=== PATIENT | male | born 1950 | race Caucasian/White ===

== ENCOUNTER 2020-10-18 11:48 | Inpatient (IN) | payer SELFPAY ==
[~2020-10-18] VITALS: Ht 170.2 cm; Wt 68.0 kg
[~2020-10-18 11:48] MED LIST: ETOMIDATE 2MG/ML 10ML VIAL IV ONE; SODIUM CHLORIDE 0.9% 10ML VIAL ONE; VECURONIUM BROMIDE 10 MG/VIAL IV ONE
[2020-10-18] MEDS ORDERED: ONDANSETRON HCL 4MG/2ML INJ IV STA (12:20)
[2020-10-18] MEDS ORDERED: SODIUM CHLORIDE 0.9% 1,000 ML IV ONE (12:30)
[2020-10-18 12:59] LABS: BG BASE EXCESS 1.1 mmol/L (-2.0-2.0); BG CARBOXYHEMOGLOBIN 5.8 % (0.5-1.5); BG DEOXYHEMOGLOBIN 0.6 % (0.0-5.0); BG HCO3 ACT 33.1 mmol/L (22.0-26.0); BG METHEMOGLOBIN 0.2 % (0.0-1.5); BG OXYGEN SATURATION 99.4 % (92.0-98.5); BG OXYHEMOGLOBIN 93.4 % (94.0-97.0); BG PCO2 105.5 mmHg (35.0-45.0); BG PH 7.115 (7.350-7.450); BG PO2 340.3 mmHg (75.0-100.0); BG SAMPLE SITE RIGHT RADIAL; BG TOTAL HEMOGLOBIN 11.9 g/dL (12.0-18.0); BG VENT MODE MASK - NRB
[2020-10-18 12:59] LABS: HEMATOCRIT. 34.3 % (42.0-52.0); HEMOGLOBIN. 11.3 g/dL (14.0-18.0); MEAN CORPUSCULAR HEMOGLOBIN 31.7 pg (28.0-32.0); MEAN PLATELET VOLUME 7.8 fl (7.4-10.4); PLATELET 384 x1000/uL (130-400); RED BLOOD CELL COUNT 3.57 mill/uL (4.7-6.1); RED CELL DISTRIBUTION WIDTH 13.8 % (11.6-14.6)
[2020-10-18] MEDS ORDERED: NALOXONE HCL 1 MG/ML 2ML VIAL IV ONE (13:00)
[2020-10-18] MEDS ORDERED: NALOXONE HCL 1 MG/ML 2ML VIAL IM ONE (13:00)
[2020-10-18] MEDS ORDERED: NALOXONE HCL 1 MG/ML 2ML VIAL ONE (13:01)
[2020-10-18 13:07] LABS: CHLORIDE 92 mEq/L (98-107)
[2020-10-18 13:10] LABS: PROTHROMBIN TIME 10.7 sec (9.6-11.0)
[2020-10-18 13:13] LABS: ETHANOL BLOOD < 10 mg/dL
[2020-10-18] MEDS ORDERED: IPRATROPIUM/ALBUTEROL 0.5-3(2.5)MG/3ML NEB HHN PRN (13:15)
[2020-10-18] MEDS ORDERED: PROPOFOL 10MG/ML 100ML 100 ML IV PRN (13:15)
[2020-10-18] MEDS ORDERED: ETOMIDATE 2MG/ML 10ML VIAL IV ONE (13:15)
[2020-10-18] MEDS ORDERED: PROPOFOL 10MG/ML 100ML 100 ML IV ONE (13:15)
[2020-10-18 13:17] LABS: CREATINE KINASE 483 IU/L (39-308)
[2020-10-18] MEDS ORDERED: LORAZEPAM 2MG/ML CPJ IV PRN (13:30)
[2020-10-18] MEDS ORDERED: DOCUSATE SODIUM 100MG CAPSULE PO PRN (13:30)
[2020-10-18] MEDS ORDERED: CLONIDINE 0.1MG TABLET PO PRN (13:30)
[2020-10-18] MEDS ORDERED: ACETAMINOPHEN 325MG TABLET PO PRN (13:30)
[2020-10-18] MEDS ORDERED: ONDANSETRON HCL 4MG/2ML INJ IV PRN (13:30)
[2020-10-18 13:35] LABS: CLARITY URINE CLOUDY (CLEAR); COLOR URINE YELLOW (YELLOW); KETONES URINE TRACE (NEGATIVE); LEUKOCYTE ESTERASE URINE NEGATIVE (NEGATIVE); NITRITE URINE NEGATIVE (NEGATIVE); OCCULT BLOOD URINE TRACE (NEGATIVE); PROTEIN URINE 2+ (NEGATIVE); SPECIFIC GRAVITY URINE 1.027 (1.005-1.030)
[2020-10-18 14:01] LABS: PLATELET ESTIMATE NORMAL
[2020-10-18] MEDS ORDERED: PIPERACILLIN/TAZ 3.375G PREMIX 50 ML IV ONE (14:15)
[2020-10-18] MEDS ORDERED: VANCOMYCIN 1 G PREMIX 200 ML IV SCH (14:15)
[2020-10-18 14:35] LABS: *AMPHETAMINES SCREEN URINE NEGATIVE (NEGATIVE); *BARBITURATES SCREEN URINE NEGATIVE (NEGATIVE); *BENZODIAZEPINES SCREEN URINE NEGATIVE (NEGATIVE); *COCAINE SCREEN URINE NEGATIVE (NEGATIVE); METHADONE URINE SCREEN NEGATIVE (NEGATIVE)
[2020-10-18 14:36] LABS: CANNABINOID URINE SCREEN NEGATIVE (NEGATIVE); OPIATES URINE SCREEN NEGATIVE (NEGATIVE); PHENCYCLIDINE URINE SCREEN NEGATIVE (NEGATIVE)
[2020-10-18 14:38] LABS: BG BASE EXCESS 5.5 mmol/L (-2.0-2.0); BG CARBOXYHEMOGLOBIN 2.9 % (0.5-1.5); BG DEOXYHEMOGLOBIN 1.7 % (0.0-5.0); BG FRACTION INSPIRED OXYGEN 100; BG HCO3 ACT 32.7 mmol/L (22.0-26.0); BG METHEMOGLOBIN 0.1 % (0.0-1.5); BG OXYGEN SATURATION 98.2 % (92.0-98.5); BG OXYHEMOGLOBIN 95.3 % (94.0-97.0); BG PH 7.354 (7.350-7.450); BG PO2 123.8 mmHg (75.0-100.0); BG SAMPLE SITE RIGHT RADIAL; BG TOTAL HEMOGLOBIN 12.4 g/dL (12.0-18.0); BG VENT MODE VENT - AC
[2020-10-18] MEDS: PANTOPRAZOLE SODIUM 40 MG/VIAL IV SCH (16:16)
[2020-10-18] MEDS: PIPERACILLIN/TAZ 3.375G PREMIX 50 ML IV SCH ×2 (16:17→21:49)
[2020-10-18] MEDS: DEXT 5%/0.45% NACL 1000ML 1,000 ML IV SCH (16:59)
[2020-10-18] MEDS: ENOXAPARIN 40MG/0.4ML SYR SUBCUT SCH (17:06)
[2020-10-18 18:57] LABS: BG BASE EXCESS 7.2 mmol/L (-2.0-2.0); BG DEOXYHEMOGLOBIN 2.3 % (0.0-5.0); BG FRACTION INSPIRED OXYGEN 80; BG HCO3 ACT 36.8 mmol/L (22.0-26.0); BG METHEMOGLOBIN 0.4 % (0.0-1.5); BG OXYGEN SATURATION 97.7 % (92.0-98.5); BG OXYHEMOGLOBIN 97.3 % (94.0-97.0); BG PCO2 87.5 mmHg (35.0-45.0); BG PH 7.242 (7.350-7.450); BG PO2 118.9 mmHg (75.0-100.0); BG SAMPLE SITE RIGHT RADIAL; BG TOTAL HEMOGLOBIN 10.4 g/dL (12.0-18.0); BG VENT MODE VENT - AC
[2020-10-18] MEDS ORDERED: MIDAZOLAM HCL 100 MG in SODIUM CHLORIDE 0.9% 80 ML IV PRN (19:00)
[2020-10-18] MEDS: MIDAZOLAM HCL 100 MG in SODIUM CHLORIDE 0.9% 80 ML IV PRN (20:24)
[2020-10-18] MEDS: IPRATROPIUM/ALBUTEROL 0.5-3(2.5)MG/3ML NEB HHN SCH (21:10)
[2020-10-18] MEDS ORDERED: NOREPINEPHRINE 8 MG in DEXT 5% WATER 242 ML IV PRN ×2 (21:30→21:45)
[2020-10-18 23:00] VITALS: BP 100/70
[2020-10-19] VITALS (72 sets, daily range): BP systolic 94–146; BP diastolic 43–75
[2020-10-19 01:03] LABS: BG BASE EXCESS 4.7 mmol/L (-2.0-2.0); BG CARBOXYHEMOGLOBIN 0.3 % (0.5-1.5); BG DEOXYHEMOGLOBIN 4.4 % (0.0-5.0); BG HCO3 ACT 32.2 mmol/L (22.0-26.0); BG METHEMOGLOBIN 0.3 % (0.0-1.5); BG OXYGEN SATURATION 95.6 % (92.0-98.5); BG PCO2 63.6 mmHg (35.0-45.0); BG PH 7.322 (7.350-7.450); BG PO2 81.2 mmHg (75.0-100.0); BG TOTAL HEMOGLOBIN 10.7 g/dL (12.0-18.0)
[2020-10-19] MEDS: IPRATROPIUM/ALBUTEROL 0.5-3(2.5)MG/3ML NEB HHN SCH ×4 (02:14→20:23)
[2020-10-19] MEDS: DEXT 5%/0.45% NACL 1000ML 1,000 ML IV SCH ×2 (02:59→16:41)
[2020-10-19] MEDS: PROPOFOL 10MG/ML 100ML 100 ML IV PRN (02:59)
[2020-10-19] MEDS: PIPERACILLIN/TAZOBACTAM 3.375 G in DEXT 5% WATER 100 ML IV SCH ×4 (04:00→21:12)
[2020-10-19 05:48] LABS: HEMATOCRIT. 28.8 % (42.0-52.0); HEMOGLOBIN. 9.7 g/dL (14.0-18.0); MEAN CORPUSCULAR VOLUME 94.9 fL (80.0-94.0); MEAN PLATELET VOLUME 8.1 fl (7.4-10.4); PLATELET 330 x1000/uL (130-400); RED BLOOD CELL COUNT 3.04 mill/uL (4.7-6.1); RED CELL DISTRIBUTION WIDTH 13.6 % (11.6-14.6)
[2020-10-19 05:54] LABS: CHLORIDE 94 mEq/L (98-107)
[2020-10-19 06:21] LABS: BG FRACTION INSPIRED OXYGEN 75; BG SAMPLE SITE RIGHT BRACHIAL
[2020-10-19 07:25] LABS: BG VENT MODE VENT - AC
[2020-10-19] MEDS: MIDAZOLAM HCL 100 MG in SODIUM CHLORIDE 0.9% 80 ML IV PRN (08:07)
[2020-10-19] MEDS: PANTOPRAZOLE SODIUM 40 MG/VIAL IV SCH (08:14)
[2020-10-19 09:57] LABS: BG BASE EXCESS 6.1 mmol/L (-2.0-2.0); BG CARBOXYHEMOGLOBIN 0.3 % (0.5-1.5); BG DEOXYHEMOGLOBIN 3.1 % (0.0-5.0); BG FRACTION INSPIRED OXYGEN 65; BG HCO3 ACT 31.5 mmol/L (22.0-26.0); BG METHEMOGLOBIN 0.2 % (0.0-1.5); BG OXYGEN SATURATION 96.9 % (92.0-98.5); BG OXYHEMOGLOBIN 96.4 % (94.0-97.0); BG PCO2 49.5 mmHg (35.0-45.0); BG PH 7.422 (7.350-7.450); BG PO2 86.3 mmHg (75.0-100.0); BG SAMPLE SITE LEFT BRACHIAL; BG TOTAL HEMOGLOBIN 10.8 g/dL (12.0-18.0); BG VENT MODE VENT - AC
[2020-10-19 14:18] LABS: PLATELET ESTIMATE NORMAL
[2020-10-19] MEDS: ENOXAPARIN 40MG/0.4ML SYR SUBCUT SCH (15:52)
[2020-10-19] MEDS: NYSTATIN/TRIAMCIN OINT 15GM TOP SCH (17:52)
[2020-10-20] VITALS (89 sets, daily range): BP systolic 83–149; BP diastolic 29–76
[2020-10-20] MEDS: PROPOFOL 10MG/ML 100ML 100 ML IV PRN ×3 (02:23→21:36)
[2020-10-20] MEDS: IPRATROPIUM/ALBUTEROL 0.5-3(2.5)MG/3ML NEB HHN SCH ×4 (02:28→19:46)
[2020-10-20] MEDS: PIPERACILLIN/TAZOBACTAM 3.375 G in DEXT 5% WATER 100 ML IV SCH ×4 (05:49→22:05)
[2020-10-20] MEDS: DEXT 5%/0.45% NACL 1000ML 1,000 ML IV SCH ×2 (05:50→17:43)
[2020-10-20 07:59] LABS: HEMATOCRIT. 33.3 % (42.0-52.0); HEMOGLOBIN. 10.9 g/dL (14.0-18.0); MEAN CORPUSCULAR VOLUME 94.7 fL (80.0-94.0); MEAN PLATELET VOLUME 8.5 fl (7.4-10.4); PLATELET 350 x1000/uL (130-400); RED BLOOD CELL COUNT 3.51 mill/uL (4.7-6.1)
[2020-10-20 08:08] LABS: CHLORIDE 95 mEq/L (98-107)
[2020-10-20 08:28] LABS: BG BASE EXCESS 7.4 mmol/L (-2.0-2.0); BG CARBOXYHEMOGLOBIN 0.2 % (0.5-1.5); BG DEOXYHEMOGLOBIN 7.4 % (0.0-5.0); BG FRACTION INSPIRED OXYGEN 45; BG HCO3 ACT 32.4 mmol/L (22.0-26.0); BG METHEMOGLOBIN 0.3 % (0.0-1.5); BG OXYGEN SATURATION 92.6 % (92.0-98.5); BG OXYHEMOGLOBIN 92.1 % (94.0-97.0); BG PCO2 47.4 mmHg (35.0-45.0); BG PH 7.453 (7.350-7.450); BG PO2 65.8 mmHg (75.0-100.0); BG SAMPLE SITE RIGHT RADIAL; BG VENT MODE VENT - AC
[2020-10-20] MEDS: PANTOPRAZOLE SODIUM 40 MG/VIAL IV SCH (08:32)
[2020-10-20] MEDS: NYSTATIN/TRIAMCIN OINT 15GM TOP SCH ×3 (08:32→17:49)
[2020-10-20 13:53] LABS: PLATELET ESTIMATE NORMAL
[2020-10-20] MEDS: ENOXAPARIN 40MG/0.4ML SYR SUBCUT SCH (14:13)
[2020-10-20] MEDS ORDERED: PROPOFOL 10MG/ML 100ML 100 ML IV PRN (15:45)
[2020-10-21] VITALS (89 sets, daily range): BP systolic 87–136; BP diastolic 43–73
[2020-10-21] MEDS: IPRATROPIUM/ALBUTEROL 0.5-3(2.5)MG/3ML NEB HHN SCH ×4 (01:43→20:32)
[2020-10-21] MEDS: PROPOFOL 10MG/ML 100ML 100 ML IV PRN ×3 (04:04→20:17)
[2020-10-21] MEDS: PIPERACILLIN/TAZOBACTAM 3.375 G in DEXT 5% WATER 100 ML IV SCH ×4 (04:05→22:23)
[2020-10-21 05:52] LABS: HEMATOCRIT. 30.2 % (42.0-52.0); MEAN CORPUSCULAR HEMOGLOBIN 31.4 pg (28.0-32.0); MEAN CORPUSCULAR VOLUME 94.7 fL (80.0-94.0); MEAN PLATELET VOLUME 8.5 fl (7.4-10.4); PLATELET 296 x1000/uL (130-400); RED BLOOD CELL COUNT 3.19 mill/uL (4.7-6.1); RED CELL DISTRIBUTION WIDTH 13.7 % (11.6-14.6)
[2020-10-21 06:00] LABS: CHLORIDE 94 mEq/L (98-107)
[2020-10-21 07:37] LABS: PLATELET ESTIMATE NORMAL
[2020-10-21] MEDS ORDERED: PHENYLEPHRINE 100 MG in DEXT 5% WATER 240 ML IV PRN (08:00)
[2020-10-21] MEDS: FOLIC ACID/VITAMIN B COMP W-C TABLET PO SCH (09:33)
[2020-10-21] MEDS: ZINC SULFATE 220 MG ( 50 ) CAPSULE PO SCH (09:34)
[2020-10-21] MEDS: ASCORBIC ACID 500 MG TABLET PO SCH (09:34)
[2020-10-21] MEDS: PANTOPRAZOLE SODIUM 40 MG/VIAL IV SCH (09:34)
[2020-10-21] MEDS: NYSTATIN/TRIAMCIN OINT 15GM TOP SCH ×3 (09:35→17:15)
[2020-10-21 11:21] LABS: BG BASE EXCESS 4.6 mmol/L (-2.0-2.0); BG CARBOXYHEMOGLOBIN 0.3 % (0.5-1.5); BG DEOXYHEMOGLOBIN 1.6 % (0.0-5.0); BG FRACTION INSPIRED OXYGEN 45; BG HCO3 ACT 28.1 mmol/L (22.0-26.0); BG METHEMOGLOBIN 0.1 % (0.0-1.5); BG OXYGEN SATURATION 98.4 % (92.0-98.5); BG PCO2 37.4 mmHg (35.0-45.0); BG PH 7.493 (7.350-7.450); BG PO2 140.4 mmHg (75.0-100.0); BG SAMPLE SITE LEFT BRACHIAL; BG TOTAL HEMOGLOBIN 10.3 g/dL (12.0-18.0); BG TOTAL RESPIRATORY RATE 26 b/min; BG VENT MODE VENT - AC
[2020-10-21] MEDS: FUROSEMIDE 40MG/4ML VIAL IVP SCH (13:16)
[2020-10-21] MEDS: ENOXAPARIN 40MG/0.4ML SYR SUBCUT SCH (13:31)
[2020-10-22] VITALS (91 sets, daily range): BP systolic 80–141; BP diastolic 36–76
[2020-10-22] MEDS: IPRATROPIUM/ALBUTEROL 0.5-3(2.5)MG/3ML NEB HHN SCH ×4 (02:16→20:06)
[2020-10-22] MEDS: PIPERACILLIN/TAZOBACTAM 3.375 G in DEXT 5% WATER 100 ML IV SCH ×4 (04:24→21:54)
[2020-10-22 05:42] LABS: CHLORIDE 97 mEq/L (98-107)
[2020-10-22] MEDS: PANTOPRAZOLE SODIUM 40 MG/VIAL IV SCH (08:03)
[2020-10-22] MEDS: FOLIC ACID/VITAMIN B COMP W-C TABLET PO SCH (08:07)
[2020-10-22] MEDS: ASCORBIC ACID 500 MG TABLET PO SCH (08:07)
[2020-10-22] MEDS: FUROSEMIDE 40MG/4ML VIAL IVP SCH (08:07)
[2020-10-22] MEDS: ZINC SULFATE 220 MG ( 50 ) CAPSULE PO SCH (08:07)
[2020-10-22] MEDS: PROPOFOL 10MG/ML 100ML 100 ML IV PRN ×2 (08:11→21:55)
[2020-10-22 09:33] LABS: BG BASE EXCESS 11.3 mmol/L (-2.0-2.0); BG CARBOXYHEMOGLOBIN 0.3 % (0.5-1.5); BG DEOXYHEMOGLOBIN 10.4 % (0.0-5.0); BG HCO3 ACT 36.7 mmol/L (22.0-26.0); BG METHEMOGLOBIN 0.3 % (0.0-1.5); BG OXYGEN SATURATION 89.5 % (92.0-98.5); BG PCO2 51.8 mmHg (35.0-45.0); BG PH 7.468 (7.350-7.450); BG PO2 56.4 mmHg (75.0-100.0); BG SAMPLE SITE RIGHT RADIAL; BG TOTAL HEMOGLOBIN 11.7 g/dL (12.0-18.0); BG VENT MODE VENT - CPAP
[2020-10-22] MEDS: NYSTATIN/TRIAMCIN OINT 15GM TOP SCH ×3 (10:05→17:26)
[2020-10-22] MEDS: ENOXAPARIN 40MG/0.4ML SYR SUBCUT SCH (15:31)
[2020-10-23] VITALS (57 sets, daily range): BP systolic 100–139; BP diastolic 48–73
[2020-10-23] MEDS: IPRATROPIUM/ALBUTEROL 0.5-3(2.5)MG/3ML NEB HHN SCH ×4 (02:05→20:27)
[2020-10-23] MEDS: PIPERACILLIN/TAZOBACTAM 3.375 G in DEXT 5% WATER 100 ML IV SCH ×4 (04:21→22:36)
[2020-10-23 05:41] LABS: CHLORIDE 96 mEq/L (98-107)
[2020-10-23 05:42] LABS: HEMATOCRIT. 28.8 % (42.0-52.0); HEMOGLOBIN. 9.7 g/dL (14.0-18.0); MEAN CORPUSCULAR HEMOGLOBIN 31.9 pg (28.0-32.0); MEAN CORPUSCULAR VOLUME 94.4 fL (80.0-94.0); MEAN PLATELET VOLUME 8.1 fl (7.4-10.4); PLATELET 308 x1000/uL (130-400); RED BLOOD CELL COUNT 3.05 mill/uL (4.7-6.1)
[2020-10-23 08:28] LABS: BG BASE EXCESS 11.6 mmol/L (-2.0-2.0); BG CARBOXYHEMOGLOBIN 0.3 % (0.5-1.5); BG DEOXYHEMOGLOBIN 8.6 % (0.0-5.0); BG FRACTION INSPIRED OXYGEN 45; BG HCO3 ACT 36.6 mmol/L (22.0-26.0); BG METHEMOGLOBIN 0.1 % (0.0-1.5); BG OXYGEN SATURATION 91.4 % (92.0-98.5); BG PCO2 51.1 mmHg (35.0-45.0); BG PH 7.473 (7.350-7.450); BG PO2 59.6 mmHg (75.0-100.0); BG SAMPLE SITE LEFT RADIAL; BG TOTAL HEMOGLOBIN 8.9 g/dL (12.0-18.0); BG VENT MODE VENT - CPAP
[2020-10-23] MEDS: ZINC SULFATE 220 MG ( 50 ) CAPSULE PO SCH (08:53)
[2020-10-23] MEDS: FUROSEMIDE 40MG/4ML VIAL IVP SCH (08:53)
[2020-10-23] MEDS: PANTOPRAZOLE SODIUM 40 MG/VIAL IV SCH (08:53)
[2020-10-23] MEDS: ASCORBIC ACID 500 MG TABLET PO SCH (08:53)
[2020-10-23] MEDS: FOLIC ACID/VITAMIN B COMP W-C TABLET PO SCH (08:53)
[2020-10-23] MEDS: NYSTATIN/TRIAMCIN OINT 15GM TOP SCH ×3 (08:54→16:21)
[2020-10-23 11:41] LABS: PLATELET ESTIMATE NORMAL
[2020-10-23] MEDS ORDERED: KCL 20MEQ/100ML PREMIX 100 ML IV SCH (13:00)
[2020-10-23] MEDS: ENOXAPARIN 40MG/0.4ML SYR SUBCUT SCH (13:34)
[2020-10-23 15:02] LABS: BG BASE EXCESS 14.5 mmol/L (-2.0-2.0); BG CARBOXYHEMOGLOBIN 0.3 % (0.5-1.5); BG DEOXYHEMOGLOBIN 6.3 % (0.0-5.0); BG FRACTION INSPIRED OXYGEN 50; BG HCO3 ACT 40.2 mmol/L (22.0-26.0); BG METHEMOGLOBIN 0.3 % (0.0-1.5); BG OXYGEN SATURATION 93.7 % (92.0-98.5); BG OXYHEMOGLOBIN 93.1 % (94.0-97.0); BG PH 7.474 (7.350-7.450); BG PO2 64.4 mmHg (75.0-100.0); BG SAMPLE SITE LEFT RADIAL; BG TOTAL HEMOGLOBIN 11.1 g/dL (12.0-18.0); BG VENT MODE COOL AEROSOL
[2020-10-23] MEDS ORDERED: PIPERONYL/PYRETHRINS (RID)120 ML SHAMPOO TOP NR (22:00)
[2020-10-24] VITALS (39 sets, daily range): BP systolic 104–149; BP diastolic 47–81
[2020-10-24] MEDS: IPRATROPIUM/ALBUTEROL 0.5-3(2.5)MG/3ML NEB HHN SCH ×2 (02:23→07:52)
[2020-10-24 06:35] LABS: CHLORIDE 98 mEq/L (98-107)
[2020-10-24 06:37] LABS: HEMATOCRIT. 32.2 % (42.0-52.0); HEMOGLOBIN. 10.5 g/dL (14.0-18.0); MEAN CORPUSCULAR HEMOGLOBIN 31.2 pg (28.0-32.0); MEAN CORPUSCULAR VOLUME 95.3 fL (80.0-94.0); MEAN PLATELET VOLUME 8.2 fl (7.4-10.4); PLATELET 351 x1000/uL (130-400); RED BLOOD CELL COUNT 3.38 mill/uL (4.7-6.1); RED CELL DISTRIBUTION WIDTH 14.2 % (11.6-14.6)
[2020-10-24] MEDS: ASCORBIC ACID 500 MG TABLET PO SCH (07:56)
[2020-10-24] MEDS: ZINC SULFATE 220 MG ( 50 ) CAPSULE PO SCH (07:56)
[2020-10-24] MEDS: FOLIC ACID/VITAMIN B COMP W-C TABLET PO SCH (07:56)
[2020-10-24] MEDS: FUROSEMIDE 40MG/4ML VIAL IVP SCH (07:58)
[2020-10-24] MEDS: PANTOPRAZOLE SODIUM 40 MG/VIAL IV SCH (07:58)
[2020-10-24] MEDS: NYSTATIN/TRIAMCIN OINT 15GM TOP SCH ×3 (08:00→17:27)
[2020-10-24 09:34] LABS: BG BASE EXCESS 11.4 mmol/L (-2.0-2.0); BG CARBOXYHEMOGLOBIN 0.2 % (0.5-1.5); BG FRACTION INSPIRED OXYGEN 50; BG HCO3 ACT 38.2 mmol/L (22.0-26.0); BG METHEMOGLOBIN 0.3 % (0.0-1.5); BG OXYHEMOGLOBIN 94.5 % (94.0-97.0); BG PCO2 61.9 mmHg (35.0-45.0); BG PH 7.408 (7.350-7.450); BG PO2 74.3 mmHg (75.0-100.0); BG SAMPLE SITE RIGHT RADIAL; BG TOTAL HEMOGLOBIN 11.5 g/dL (12.0-18.0); BG VENT MODE COOL AEROSOL
[2020-10-24 10:38] LABS: PLATELET ESTIMATE NORMAL
[2020-10-24] MEDS: ENOXAPARIN 40MG/0.4ML SYR SUBCUT SCH (13:53)
[2020-10-25] VITALS (7 sets, daily range): BP systolic 114–131; BP diastolic 56–69
[2020-10-25 06:51] LABS: BASOPHILS % 0.6 % (0.0-2.0); EOSINOPHILS % 1.8 % (0.0-5.0); HEMATOCRIT. 34.4 % (42.0-52.0); HEMOGLOBIN. 11.4 g/dL (14.0-18.0); LYMPHOCYTES % 9.4 % (20.0-50.0); MEAN CORPUSCULAR HEMOGLOBIN 31.5 pg (28.0-32.0); MEAN CORPUSCULAR VOLUME 95.3 fL (80.0-94.0); MEAN PLATELET VOLUME 8.2 fl (7.4-10.4); MONOCYTES % 10.9 % (2.0-8.0); NEUTROPHILS % 77.3 % (40.0-76.0); PLATELET 408 x1000/uL (130-400); RED BLOOD CELL COUNT 3.61 mill/uL (4.7-6.1); RED CELL DISTRIBUTION WIDTH 14.1 % (11.6-14.6)
[2020-10-25 07:40] LABS: CHLORIDE 96 mEq/L (98-107)
[2020-10-25] MEDS: FUROSEMIDE 40MG/4ML VIAL IVP SCH (08:45)
[2020-10-25] MEDS: ASCORBIC ACID 500 MG TABLET PO SCH ×2 (08:45→08:56)
[2020-10-25] MEDS: PANTOPRAZOLE SODIUM 40 MG/VIAL IV SCH (08:45)
[2020-10-25] MEDS: ZINC SULFATE 220 MG ( 50 ) CAPSULE PO SCH ×2 (08:45→08:56)
[2020-10-25] MEDS: NYSTATIN/TRIAMCIN OINT 15GM TOP SCH ×3 (08:47→17:19)
[2020-10-25] MEDS: POTASSIUM CHLORIDE 20MEQ TABLET SR PO NR (10:45)
[2020-10-25] MEDS: ENOXAPARIN 40MG/0.4ML SYR SUBCUT SCH (14:38)
[2020-10-26] VITALS (7 sets, daily range): BP systolic 113–131; BP diastolic 56–66
[2020-10-26] MEDS: PANTOPRAZOLE SODIUM 40 MG/VIAL IV SCH (09:25)
[2020-10-26] MEDS: FUROSEMIDE 40MG/4ML VIAL IVP SCH (09:25)
[2020-10-26] MEDS: ASCORBIC ACID 500 MG TABLET PO SCH (09:25)
[2020-10-26] MEDS: ZINC SULFATE 220 MG ( 50 ) CAPSULE PO SCH (09:25)
[2020-10-26] MEDS: NYSTATIN/TRIAMCIN OINT 15GM TOP SCH ×3 (09:26→18:03)
[2020-10-26] MEDS: POTASSIUM CHLORIDE 20MEQ TABLET SR PO NR (10:59)
[2020-10-26] MEDS: ENOXAPARIN 40MG/0.4ML SYR SUBCUT SCH (15:39)
[2020-10-27 00:35] VITALS: BP 127/70
[2020-10-27 04:00] VITALS: BP 97/73
[2020-10-27] MEDS: ASCORBIC ACID 500 MG TABLET PO SCH ×2 (09:00→09:54)
[2020-10-27] MEDS: ZINC SULFATE 220 MG ( 50 ) CAPSULE PO SCH ×2 (09:00→09:54)
[2020-10-27] MEDS: FUROSEMIDE 40MG/4ML VIAL IVP SCH (09:54)
[2020-10-27] MEDS: PANTOPRAZOLE SODIUM 40 MG/VIAL IV SCH (09:54)
[2020-10-27] MEDS: NYSTATIN/TRIAMCIN OINT 15GM TOP SCH ×3 (09:54→17:00)
[2020-10-27 12:00] VITALS: BP 111/63
[2020-10-27] MEDS: ENOXAPARIN 40MG/0.4ML SYR SUBCUT SCH (15:40)
[2020-10-27 16:00] VITALS: BP 125/63
[2020-10-27 20:00] VITALS: BP 127/66
[2020-10-27] MEDS: GUAIFENESIN 600MG ER TABLET PO SCH (21:00)
[2020-10-28] VITALS: BP 129/76
[2020-10-28 04:00] VITALS: BP 111/67
[2020-10-28 08:00] VITALS: BP 121/68
[2020-10-28] MEDS: GUAIFENESIN 600MG ER TABLET PO SCH ×2 (09:00→21:00)
[2020-10-28] MEDS: ASCORBIC ACID 500 MG TABLET PO SCH (09:00)
[2020-10-28] MEDS: PANTOPRAZOLE SODIUM 40 MG/VIAL IV SCH (09:00)
[2020-10-28] MEDS: NYSTATIN/TRIAMCIN OINT 15GM TOP SCH ×3 (09:00→17:14)
[2020-10-28] MEDS: FUROSEMIDE 40MG/4ML VIAL IVP SCH (09:00)
[2020-10-28] MEDS: ZINC SULFATE 220 MG ( 50 ) CAPSULE PO SCH (09:00)
[2020-10-28 12:53] VITALS: BP 121/68
[2020-10-28] MEDS: ENOXAPARIN 40MG/0.4ML SYR SUBCUT SCH (14:00)
[2020-10-28 20:00] VITALS: BP_SYST 101; BP_SYST 128; BP_DIAS 59; BP_DIAS 60
[2020-10-29] VITALS: BP 105/60
[2020-10-29 04:00] VITALS: BP 125/72
[2020-10-29 06:52] LABS: BASOPHILS % 0.9 % (0.0-2.0); EOSINOPHILS % 3.3 % (0.0-5.0); HEMATOCRIT. 33.8 % (42.0-52.0); HEMOGLOBIN. 11.6 g/dL (14.0-18.0); LYMPHOCYTES % 9.3 % (20.0-50.0); MEAN CORPUSCULAR HEMOGLOBIN 32.3 pg (28.0-32.0); MEAN CORPUSCULAR VOLUME 93.8 fL (80.0-94.0); MEAN PLATELET VOLUME 8.1 fl (7.4-10.4); MONOCYTES % 7.6 % (2.0-8.0); NEUTROPHILS % 78.9 % (40.0-76.0); PLATELET 505 x1000/uL (130-400); RED CELL DISTRIBUTION WIDTH 13.9 % (11.6-14.6)
[2020-10-29 07:10] LABS: CHLORIDE 98 mEq/L (98-107)
[2020-10-29 07:53] VITALS: BP 114/68
[2020-10-29] MEDS: NYSTATIN/TRIAMCIN OINT 15GM TOP SCH ×3 (08:51→17:43)
[2020-10-29] MEDS: ZINC SULFATE 220 MG ( 50 ) CAPSULE PO SCH (08:57)
[2020-10-29] MEDS: PANTOPRAZOLE SODIUM 40 MG/VIAL IV SCH (08:57)
[2020-10-29] MEDS: ASCORBIC ACID 500 MG TABLET PO SCH (08:57)
[2020-10-29] MEDS: FUROSEMIDE 40MG/4ML VIAL IVP SCH (08:57)
[2020-10-29] MEDS: GUAIFENESIN 600MG ER TABLET PO SCH ×2 (08:57→21:00)
[2020-10-29 12:00] VITALS: BP 120/66
[2020-10-29] MEDS: ENOXAPARIN 40MG/0.4ML SYR SUBCUT SCH (15:21)
[2020-10-29 16:00] VITALS: BP 109/65
[2020-10-29 20:00] VITALS: BP 135/62
[2020-10-30] VITALS: BP 120/62
[2020-10-30 04:00] VITALS: BP 118/61
[2020-10-30 07:45] VITALS: BP 108/67
[2020-10-30] MEDS: ZINC SULFATE 220 MG ( 50 ) CAPSULE PO SCH (09:00)
[2020-10-30] MEDS: FUROSEMIDE 40MG TABLET PO SCH (09:00)
[2020-10-30] MEDS: GUAIFENESIN 600MG ER TABLET PO SCH ×2 (09:00→21:00)
[2020-10-30] MEDS: ASCORBIC ACID 500 MG TABLET PO SCH (09:00)
[2020-10-30] MEDS: PANTOPRAZOLE SODIUM 40 MG/VIAL IV SCH (09:00)
[2020-10-30 10:52] LABS: BASOPHILS % 0.8 % (0.0-2.0); EOSINOPHILS % 2.7 % (0.0-5.0); HEMATOCRIT. 32.6 % (42.0-52.0); LYMPHOCYTES % 8.4 % (20.0-50.0); MEAN CORPUSCULAR HEMOGLOBIN 31.7 pg (28.0-32.0); MEAN CORPUSCULAR VOLUME 94.4 fL (80.0-94.0); MEAN PLATELET VOLUME 8.3 fl (7.4-10.4); MONOCYTES % 5.3 % (2.0-8.0); NEUTROPHILS % 82.8 % (40.0-76.0); PLATELET 497 x1000/uL (130-400); RED BLOOD CELL COUNT 3.46 mill/uL (4.7-6.1)
[2020-10-30] MEDS: NYSTATIN/TRIAMCIN OINT 15GM TOP SCH ×3 (11:09→16:47)
[2020-10-30 11:51] VITALS: BP 125/65
[2020-10-30 11:58] LABS: CHLORIDE 98 mEq/L (98-107)
[2020-10-30] MEDS: ENOXAPARIN 40MG/0.4ML SYR SUBCUT SCH (14:24)
[2020-10-30 15:45] VITALS: BP 115/60
[2020-10-30 20:00] VITALS: BP_SYST 110; BP_SYST 169; BP_DIAS 62; BP_DIAS 81
[2020-10-31] VITALS: BP 113/62
[2020-10-31 04:00] VITALS: BP 134/65
[2020-10-31 08:00] VITALS: BP 116/59
[2020-10-31] MEDS: ZINC SULFATE 220 MG ( 50 ) CAPSULE PO SCH (09:00)
[2020-10-31] MEDS: GUAIFENESIN 600MG ER TABLET PO SCH ×2 (09:00→21:00)
[2020-10-31] MEDS: ASCORBIC ACID 500 MG TABLET PO SCH (09:00)
[2020-10-31] MEDS: PANTOPRAZOLE SODIUM 40 MG/VIAL IV SCH (09:00)
[2020-10-31] MEDS: FUROSEMIDE 40MG TABLET PO SCH (09:00)
[2020-10-31] MEDS: NYSTATIN/TRIAMCIN OINT 15GM TOP SCH ×3 (09:00→17:30)
[2020-10-31 12:00] VITALS: BP 101/56
[2020-10-31] MEDS: ENOXAPARIN 40MG/0.4ML SYR SUBCUT SCH (14:00)
[2020-10-31 16:00] VITALS: BP 123/71
[2020-10-31 20:00] VITALS: BP 118/62
[2020-11-01] VITALS: BP 123/70
[2020-11-01 04:00] VITALS: BP 116/65
[2020-11-01 08:00] VITALS: BP 147/60
[2020-11-01] MEDS: NYSTATIN/TRIAMCIN OINT 15GM TOP SCH ×3 (09:00→18:20)
[2020-11-01] MEDS: PANTOPRAZOLE SODIUM 40 MG/VIAL IV SCH (09:00)
[2020-11-01] MEDS: ZINC SULFATE 220 MG ( 50 ) CAPSULE PO SCH (09:00)
[2020-11-01] MEDS: GUAIFENESIN 600MG ER TABLET PO SCH ×2 (09:00→21:00)
[2020-11-01] MEDS: ASCORBIC ACID 500 MG TABLET PO SCH (09:00)
[2020-11-01] MEDS: FUROSEMIDE 40MG TABLET PO SCH (09:00)
[2020-11-01 12:00] VITALS: BP 118/59
[2020-11-01] MEDS: ENOXAPARIN 40MG/0.4ML SYR SUBCUT SCH (13:54)
[2020-11-01 16:00] VITALS: BP 152/74
[2020-11-01 20:00] VITALS: BP 122/65
[2020-11-02] VITALS (7 sets, daily range): BP systolic 101–136; BP diastolic 61–80
[2020-11-02 06:56] LABS: CHLORIDE 100 mEq/L (98-107)
[2020-11-02 07:11] LABS: BASOPHILS % 0.9 % (0.0-2.0); EOSINOPHILS % 2.7 % (0.0-5.0); HEMATOCRIT. 32.7 % (42.0-52.0); HEMOGLOBIN. 11.1 g/dL (14.0-18.0); LYMPHOCYTES % 10.9 % (20.0-50.0); MEAN CORPUSCULAR HEMOGLOBIN 32.2 pg (28.0-32.0); MEAN CORPUSCULAR VOLUME 94.5 fL (80.0-94.0); MEAN PLATELET VOLUME 8.6 fl (7.4-10.4); MONOCYTES % 5.8 % (2.0-8.0); NEUTROPHILS % 79.7 % (40.0-76.0); PLATELET 510 x1000/uL (130-400); RED BLOOD CELL COUNT 3.46 mill/uL (4.7-6.1); RED CELL DISTRIBUTION WIDTH 14.6 % (11.6-14.6)
[2020-11-02] MEDS: ZINC SULFATE 220 MG ( 50 ) CAPSULE PO SCH (09:00)
[2020-11-02] MEDS: GUAIFENESIN 600MG ER TABLET PO SCH (09:00)
[2020-11-02] MEDS: FUROSEMIDE 40MG TABLET PO SCH (09:00)
[2020-11-02] MEDS: ASCORBIC ACID 500 MG TABLET PO SCH (09:00)
[2020-11-02] MEDS: NYSTATIN/TRIAMCIN OINT 15GM TOP SCH ×3 (09:00→17:00)
[2020-11-02] MEDS: PANTOPRAZOLE SODIUM 40 MG/VIAL IV SCH (09:00)
[2020-11-02] MEDS: ENOXAPARIN 40MG/0.4ML SYR SUBCUT SCH (13:43)
[2020-11-02] MEDS ORDERED: PIPERONYL/PYRETHRINS (RID)120 ML SHAMPOO TOP SCH (15:45)
[2020-11-03] VITALS: BP 116/58
[2020-11-03 04:00] VITALS: BP 145/70
[2020-11-03 08:00] VITALS: BP 110/62
[2020-11-03] MEDS: FUROSEMIDE 40MG TABLET PO SCH (09:00)
[2020-11-03] MEDS: ZINC SULFATE 220 MG ( 50 ) CAPSULE PO SCH (09:00)
[2020-11-03] MEDS: PANTOPRAZOLE SODIUM 40 MG/VIAL IV SCH (09:00)
[2020-11-03] MEDS: ASCORBIC ACID 500 MG TABLET PO SCH (09:00)
[2020-11-03] MEDS: NYSTATIN/TRIAMCIN OINT 15GM TOP SCH ×3 (09:00→17:50)
[2020-11-03] MEDS: GUAIFENESIN 600MG ER TABLET PO SCH ×2 (09:00→21:00)
[2020-11-03 12:00] VITALS: BP 105/72
[2020-11-03] MEDS: ENOXAPARIN 40MG/0.4ML SYR SUBCUT SCH (14:00)
[2020-11-03 16:00] VITALS: BP 98/55
[2020-11-03 20:00] VITALS: BP 115/58
[2020-11-04] VITALS: BP 103/55
[2020-11-04 04:00] VITALS: BP 97/60
[2020-11-04 08:00] VITALS: BP 119/62
[2020-11-04] MEDS: FUROSEMIDE 40MG TABLET PO SCH (09:00)
[2020-11-04] MEDS: GUAIFENESIN 600MG ER TABLET PO SCH (09:00)
[2020-11-04] MEDS ORDERED: FAMOTIDINE 20MG TABLET PO SCH (09:00)
[2020-11-04] MEDS: NYSTATIN/TRIAMCIN OINT 15GM TOP SCH (11:10)
[2020-11-04 12:00] VITALS: BP 117/51
[2020-11-04 12:01] VITALS: BP 117/51
== END 2020-11-04 12:18 | disposition home or self-care (01) | DRG 720 ==
LOC: ER 11:48 → CVICU 14:22 → EDBEDREQ 14:25 → ENRESERV 21:29 → 6EST 23:11 → 6WST 10-24 15:38 → 6EST 10-27 12:45
PROVIDERS: ADMIT Hospitalist; ATTEND Hospitalist
PROC: 5A1955Z Respiratory Ventilation, Greater than 96 Consecutive Hours (ICD-10-PCS; principal; 2020-10-18)
PROC: 0BH17EZ Insertion of Endotracheal Airway into Trachea, Via Natural or Artificial Opening (ICD-10-PCS; 2020-10-18)
DX: A41.9 Sepsis, unspecified organism (principal); T40.601A Poisoning by unspecified narcotics, accidental (unintentional), initial encounter; B35.1 Tinea unguium; B85.2 Pediculosis, unspecified; D64.9 Anemia, unspecified; E43 Unspecified severe protein-calorie malnutrition; E86.1 Hypovolemia; E87.1 Hypo-osmolality and hyponatremia; E87.4 Mixed disorder of acid-base balance; E87.6 Hypokalemia; G92 Toxic encephalopathy; J44.0 Chronic obstructive pulmonary disease with (acute) lower respiratory infection; J69.0 Pneumonitis due to inhalation of food and vomit; J96.01 Acute respiratory failure with hypoxia; J96.02 Acute respiratory failure with hypercapnia; N17.9 Acute kidney failure, unspecified; L85.3 Xerosis cutis; R73.9 Hyperglycemia, unspecified; L28.0 Lichen simplex chronicus; R74.01 Elevation of levels of liver transaminase levels; I73.9 Peripheral vascular disease, unspecified; L03.116 Cellulitis of left lower limb; L03.115 Cellulitis of right lower limb; L89.616 Pressure-induced deep tissue damage of right heel; L89.516 Pressure-induced deep tissue damage of right ankle; L89.896 Pressure-induced deep tissue damage of other site; S90.812A Abrasion, left foot, initial encounter; X58.XXXA Exposure to other specified factors, initial encounter; Z59.0 Homelessness; Y93.89 Activity, other specified; Y92.89 Other specified places as the place of occurrence of the external cause; Y99.8 Other external cause status
CPT/HCPCS: 36415; 36600; 71045; 80048; 80053; 80305; 80307; 80320; 80329; 81003; 82375; 82550; 82805; 82962; 83605; 83735; 83880; 84100; 84443; 84478; 84484; 85025; 87070; 87075; 92610; 93005; 93923; 93970; 94002; 94003; 94640; 97022; 97116; 97161; 97164; 99291; C9113; J1650; J1940; J2250; J2310; J2405; J2543; J2704; J3370; J3480; J3490; J7030; J7050; J7060; G0480